=== PATIENT | female | born 2000 | race Caucasian/White ===

== ENCOUNTER 2018-04-04 21:13 | Emergency (ER) | payer BC | END 2018-04-04 22:22 | disposition home or self-care (01) | LOC: M ED 21:13 | DX: S63.654A Sprain of metacarpophalangeal joint of right ring finger, initial encounter (principal); X58.XXXA Exposure to other specified factors, initial encounter; Y92.9 Unspecified place or not applicable; Y93.9 Activity, unspecified; Y99.9 Unspecified external cause status; Z79.899 Other long term (current) drug therapy; Z91.030 Bee allergy status | CPT/HCPCS: 73140 ==

== ENCOUNTER → 2018-09-17 | Outpatient (REF) ==
[~2018-09-17] MED LIST: EPIP0.3I2 IM; IBUP-1022 PO; NEXP1IMP SC
== END ==
LOC: M LAB 16:45
PROVIDERS: ATTEND Nurse Practitioner Adult Health
DX: Z00.00 Encounter for general adult medical examination without abnormal findings (principal)

== ENCOUNTER 2019-02-11 16:49 | Emergency (ER) | payer BC, MEDICAID ==
[~2019-02-11] VITALS: Ht 157.5 cm; Wt 102.3 kg
--- NOTE | 2019-02-11 19:00 | REP ---
RIGHT HIP, TWO VIEWS: HISTORY: Hip pain. The patient is status-post ORIF of a proximal right femur fracture. Metal hardware is present. There is no acute fracture or dislocation. The joint space is normal in appearance. IMPRESSION:There is no acute fracture or dislocation. Electronically Signed by Villa Muse MD 02/11/2019 07:09 P
[2019-02-11 19:24] VITALS: BP 137/69
== END 2019-02-11 19:37 | disposition home or self-care (01) ==
LOC: M ED 16:49
DX: S76.011A Strain of muscle, fascia and tendon of right hip, initial encounter (principal); X50.1XXA Overexertion from prolonged static or awkward postures, initial encounter; Y92.89 Other specified places as the place of occurrence of the external cause; Y99.0 Civilian activity done for income or pay; Z91.030 Bee allergy status; Z79.3 Long term (current) use of hormonal contraceptives

== ENCOUNTER 2020-03-11 23:03 | Emergency (ER) | payer MEDICAID, OTHER ==
[~2020-03-11] VITALS: Ht 160 cm; Wt 110.5 kg
[2020-03-11] MEDS ORDERED: EX-L15CH3 PO (23:10)
[2020-03-11 23:44] LABS: BASO # 0.1 10^3/uL (0.0-0.2); BASO % 1.1 % (0.0-1.0); EOS # 0.2 10^3/uL (0.0-0.5); EOS % 2.9 % (0.0-3.0); HEMATOCRIT 41.6 % (36.0-47.0); HEMOGLOBIN 13.6 g/dl (12.0-15.5); LYMPH # 2.2 10^3/uL (1.5-5.0); LYMPH % 31.8 % (24.0-44.0); MEAN CORPUSCULAR HEMOGLOBIN 26.8 pg (27.0-33.0); MEAN CORPUSCULAR HGB CONC 32.7 g/dl (32.0-36.5); MEAN CORPUSCULAR VOLUME 82.1 fl (80.0-96.0); MONO # 0.5 10^3/uL (0.0-0.8); MONO % 6.6 % (0.0-5.0); NEUTROPHILS % 57.2 % (36.0-66.0); PLATELET COUNT, AUTOMATED 385 10^3/uL (150-450); RED BLOOD COUNT 5.07 10^6/uL (4.00-5.40)
[2020-03-11] MEDS ORDERED: ONDANSETRON 4MG/2ML VIAL IV ONE (23:45)
[2020-03-11] MEDS ORDERED: NS 1,000 ML IV ONE (23:45)
[2020-03-12 00:13] LABS: ALBUMIN 3.2 GM/DL (3.2-5.2); BILIRUBIN,DIRECT 0.1 MG/DL (0.0-0.2); BILIRUBIN,TOTAL 0.3 MG/DL (0.2-1.0); TOTAL PROTEIN 7.3 GM/DL (6.4-8.2)
[2020-03-12] MEDS ORDERED: DICYCLOMINE 10 MG CAP PO ONE (00:30)
[2020-03-12] MEDS ORDERED: KETOROLAC 30 MG/ML 1ML VIAL IV ONE (00:30)
[2020-03-12] MEDS ORDERED: DICY10CA13 PO (01:23)
[2020-03-12] MEDS ORDERED: ONDA4TAB6 PO (01:23)
[2020-03-12 01:34] VITALS: BP 121/75
== END 2020-03-12 01:47 | disposition home or self-care (01) ==
LOC: M ED 23:03
DX: R19.7 Diarrhea, unspecified (principal); R10.84 Generalized abdominal pain; E11.9 Type 2 diabetes mellitus without complications; Z91.030 Bee allergy status; Z79.3 Long term (current) use of hormonal contraceptives
CPT/HCPCS: 80047; 80076; 81001; 83690; 84702; 85025; 96361; 96374; 96375; 99284; J1885; J2405

== ENCOUNTER → 2020-03-12 | Outpatient (REF) | payer MEDICAID ==
[~2020-03-12] MED LIST changes: +DICY10CA13 PO; +EX-L15CH3 PO; +ONDA4TAB6 PO
== END ==
LOC: M LAB REF 14:14
PROVIDERS: ATTEND Physician Assistant
DX: R19.7 Diarrhea, unspecified (principal)

== ENCOUNTER → 2021-03-11 | Outpatient (CLI) | payer OTHER ==
[2021-03-11 16:35] LABS: BASO % 0.4 % (0.0-1.0); EOS # 0.4 10^3/uL (0.0-0.5); HEMATOCRIT 41.9 % (36.0-47.0); HEMOGLOBIN 13.1 g/dl (12.0-15.5); LYMPH # 1.9 10^3/uL (1.5-5.0); LYMPH % 26.6 % (24.0-44.0); MEAN CORPUSCULAR HEMOGLOBIN 26.8 pg (27.0-33.0); MEAN CORPUSCULAR HGB CONC 31.3 g/dl (32.0-36.5); MEAN CORPUSCULAR VOLUME 85.9 fl (80.0-96.0); MONO # 0.4 10^3/uL (0.0-0.8); MONO % 5.5 % (2.0-8.0); NEUTROPHILS # 4.3 10^3/uL (1.5-8.5); NEUTROPHILS % 61.1 % (36.0-66.0); PLATELET COUNT, AUTOMATED 357 10^3/uL (150-450); RED BLOOD COUNT 4.88 10^6/uL (4.00-5.40); WHITE BLOOD COUNT 7.1 10^3/uL (4.0-10.0)
[2021-03-11 17:19] LABS: ALBUMIN 3.3 GM/DL (3.2-5.2); ALT/SGPT 19 U/L (12-78); AMYLASE 40 U/L (25-115); BILIRUBIN,TOTAL 0.3 MG/DL (0.2-1.0); BLOOD UREA NITROGEN 9 MG/DL (7-18); CALCIUM LEVEL 9.2 MG/DL (8.5-10.1); CARBON DIOXIDE LEVEL 26 MEQ/L (21-32); CHLORIDE LEVEL 106 MEQ/L (98-107); CREATININE FOR GFR 0.58 MG/DL (0.55-1.30); GLOMERULAR FILTRATION RATE > 60.0 (>60); GLUCOSE, FASTING 85 MG/DL (70-100); LIPASE 82 U/L (73-393); SODIUM LEVEL 138 MEQ/L (136-145); TOTAL PROTEIN 6.9 GM/DL (6.4-8.2)
== END ==
LOC: M WUC 10:34
PROVIDERS: ATTEND Physician Assistant
DX: R10.84 Generalized abdominal pain (principal); R11.2 Nausea with vomiting, unspecified; R19.7 Diarrhea, unspecified

== ENCOUNTER 2021-03-18 20:58 | Emergency (ER) | payer OTHER ==
[~2021-03-18] VITALS: Ht 160 cm; Wt 113.3 kg
[2021-03-18] MEDS ORDERED: OMEP40CA4 PO (21:11)
[2021-03-18 21:46] LABS: BASO # 0.1 10^3/uL (0.0-0.2); BASO % 0.8 % (0.0-1.0); EOS # 0.6 10^3/uL (0.0-0.5); EOS % 6.6 % (0.0-3.0); HEMATOCRIT 40.4 % (36.0-47.0); HEMOGLOBIN 13.3 g/dl (12.0-15.5); LYMPH # 1.8 10^3/uL (1.5-5.0); LYMPH % 20.1 % (24.0-44.0); MEAN CORPUSCULAR HEMOGLOBIN 27.6 pg (27.0-33.0); MEAN CORPUSCULAR HGB CONC 32.9 g/dl (32.0-36.5); MEAN CORPUSCULAR VOLUME 83.8 fl (80.0-96.0); MONO # 0.3 10^3/uL (0.0-0.8); MONO % 3.8 % (2.0-8.0); NEUTROPHILS % 68.5 % (36.0-66.0); PLATELET COUNT, AUTOMATED 361 10^3/uL (150-450); RED BLOOD COUNT 4.82 10^6/uL (4.00-5.40); WHITE BLOOD COUNT 8.8 10^3/uL (4.0-10.0)
[2021-03-18 22:09] LABS: ALBUMIN 3.4 GM/DL (3.2-5.2); ALT/SGPT 21 U/L (12-78); BILIRUBIN,DIRECT < 0.1 MG/DL (0.0-0.2); BILIRUBIN,TOTAL 0.2 MG/DL (0.2-1.0); CK-MB VALUE MASS < 1.0 NG/ML (<3.6); CPK CREATINE PHOSPHOKINASE 70 U/L (26-192); LIPASE 96 U/L (73-393); MB/CK RELATIVE INDEX 1.43 (< OR =4); TOTAL PROTEIN 7.1 GM/DL (6.4-8.2); TROPONIN I < 0.02 NG/ML (< 0.10)
[2021-03-19] MEDS ORDERED: NS 1,000 ML IV ONE (00:20)
[2021-03-19] MEDS ORDERED: GI COCKTAIL 50ML BTL(HYOSCYAMINE/MAALOX/LIDOCAINE VISCOUS)(1:3:1) PO ONE (00:20)
[2021-03-19] MEDS ORDERED: CARA1TAB6 PO (03:34)
--- NOTE | 2021-03-19 03:44 | REPVR ---
PROCEDURE INFORMATION: Exam: XR Complete Acute Abdomen Series including Chest Exam date and time: 03/19/2021 (1:33am) Age: 20 years old Clinical indication: Abdominal pain TECHNIQUE: Imaging protocol: XR complete acute abdomen series, including 2 or more views of the abdomen and a single view chest COMPARISON: Right hip plain films of 02/11/19 FINDINGS: Lungs: Normal. No consolidation. Pleural spaces: Normal. No pleural effusions. No pneumothorax. Heart/Mediastinum: Normal. No cardiomegaly. Gastrointestinal tract: Unremarkable. No bowel dilatation. Intraperitoneal space: Normal. No free air. Bones/joints: No acute fracture. Mild dextroscoliosis of the lumbar spine. Soft tissues: Prominent breast shadows. Navel piercing. IMPRESSION: No acute findings. Clear lung ruiz. The bowel gas pattern is nonspecific and non-obstructed. Electronically signed by: Sofia Ball On 03/19/2021 03:43:30 AM
[2021-03-19 03:50] VITALS: BP 132/77
--- NOTE | 2021-03-19 05:41 | ECGEPIP ---
[facility] - ED Test Date: 2021-03-19 Pat Name: LETA LATIF Department: Room: - Gender: Female Sustainability Director: KIA : 2000 Requested By: JUDE Goode PA-C Order Number: [id number] Reading MD: Piyush Delgado Measurements Intervals [place] Rate: 73 P: 37 TN: 122 QRS: 31 QRSD: 84 T: 19 QT: 382 QTc: 420 Interpretive Statements Normal sinus rhythm NONSPECIFIC T WAVE ABNORMALITY(S) NO PRIORS FOR COMPARISON Electronically Signed on 03-19-2021 5:41:02 EDT by Piyush Delgado
== END 2021-03-19 03:56 | disposition home or self-care (01) ==
LOC: M ED 20:58
DX: K29.70 Gastritis, unspecified, without bleeding (principal); K21.9 Gastro-esophageal reflux disease without esophagitis; R10.13 Epigastric pain; E66.9 Obesity, unspecified; Z79.3 Long term (current) use of hormonal contraceptives

== ENCOUNTER → 2021-05-17 | Outpatient (CLI) | payer OTHER ==
[~2021-05-17] MED LIST changes: +CARA1TAB6 PO; +OMEP40CA4 PO
--- NOTE | 2021-05-17 09:19 | REP ---
INDICATION: EPIGASTRIC PAIN COMPARISON: None. TECHNIQUE: Real time lo scale ultrasound examination using curved array transducer. FINDINGS: Liver is normal in contour, size, and echogenicity without focal hepatic lesions identified. Pancreas is incompletely evaluated due to interposed bowel gas. The gallbladder is normal and without gallstones, wall thickening, or pericholecystic fluid. No biliary ductal dilatation is appreciated and the common bile duct measures 3.0 mm diameter. Right kidney is normal in reniform shape without hydronephrosis and measures 10.4 x 6.0 x 4.9 cm. No ascites in the visualized right upper quadrant. IMPRESSION: Normal limited right upper quadrant ultrasound <Electronically signed by Everton Carmona > 05/17/21 0915
== END ==
LOC: M RAD 08:34
PROVIDERS: ATTEND Nurse Practitioner Adult Health
DX: R10.13 Epigastric pain (principal)

== ENCOUNTER → 2021-08-20 | Outpatient (CLI) | payer OTHER ==
--- NOTE | 2021-08-20 10:40 | REP ---
INDICATION: EPIGASTRIC PAIN. COMPARISON: None. TECHNIQUE/RADIOTRACER AND DOSE: After the intravenous administration of 6.6 mCi of technetium 99 M Choletec hepatobiliary imaging was performed with gallbladder ejection fraction calculation. FINDINGS: There is symmetric distribution of the radiotracer throughout the hepatocytes. The gallbladder is promptly visualized at 15 minutes. There is no delay in the biliary to bowel transit time. The gallbladder ejection fraction calculation is 93%. IMPRESSION: Normal study <Electronically signed by August Arce > 08/20/21 1037
== END ==
LOC: M RAD 08:02
PROVIDERS: ATTEND Nurse Practitioner Adult Health
DX: R10.13 Epigastric pain (principal)
CPT/HCPCS: 78227; A9537

== ENCOUNTER → 2021-10-05 | Outpatient (CLI) | payer OTHER ==
[2021-10-05 13:23] LABS: BASO % 0.3 % (0.0-1.0); EOS # 0.2 10^3/uL (0.0-0.5); EOS % 2.3 % (0.0-3.0); HEMATOCRIT 39.1 % (36.0-47.0); HEMOGLOBIN 12.6 g/dl (12.0-15.5); LYMPH # 2.2 10^3/uL (1.5-5.0); LYMPH % 28.3 % (24.0-44.0); MEAN CORPUSCULAR HEMOGLOBIN 27.5 pg (27.0-33.0); MEAN CORPUSCULAR HGB CONC 32.2 g/dl (32.0-36.5); MEAN CORPUSCULAR VOLUME 85.2 fl (80.0-96.0); MONO # 0.3 10^3/uL (0.0-0.8); NEUTROPHILS # 5.1 10^3/uL (1.5-8.5); NEUTROPHILS % 64.8 % (36.0-66.0); PLATELET COUNT, AUTOMATED 297 10^3/uL (150-450); RED BLOOD COUNT 4.59 10^6/uL (4.00-5.40); WHITE BLOOD COUNT 7.8 10^3/uL (4.0-10.0)
[2021-10-05 13:53] LABS: ALBUMIN 3.4 GM/DL (3.2-5.2); ALT/SGPT 19 U/L (12-78); AMYLASE 38 U/L (25-115); BILIRUBIN,TOTAL 0.3 MG/DL (0.2-1.0); BLOOD UREA NITROGEN 10 MG/DL (7-18); CALCIUM LEVEL 9.2 MG/DL (8.5-10.1); CARBON DIOXIDE LEVEL 27 MEQ/L (21-32); CHLORIDE LEVEL 109 MEQ/L (98-107); CREATININE FOR GFR 0.63 MG/DL (0.55-1.30); GLOMERULAR FILTRATION RATE > 60.0 (>60); GLUCOSE, FASTING 103 MG/DL (70-100); LIPASE 69 U/L (73-393); POTASSIUM SERUM 4.4 MEQ/L (3.5-5.1); SODIUM LEVEL 142 MEQ/L (136-145); TOTAL PROTEIN 6.7 GM/DL (6.4-8.2)
== END ==
LOC: M PLALAB 09:32
PROVIDERS: ATTEND Physician Assistant Medical
DX: R10.13 Epigastric pain (principal)

== ENCOUNTER → 2021-10-19 | Outpatient (CLI) | payer OTHER ==
[~2021-10-19] MED LIST changes: +E-Z-GAS II EFFERVESCENT PACKET (SODIUM BICARB./CITRIC ACID/SIMETHICONE) As Ordered ONE; +E-Z-HD 98% w/w 340GM SUSP BTL As Ordered ONE; +E-Z-PAQUE 96% w/w SUSP 176GM BTL As Ordered ONE
== END ==
LOC: M RAD 07:45
PROVIDERS: ATTEND Physician Assistant Medical
DX: R11.0 Nausea (principal)

== ENCOUNTER → 2021-11-11 | Outpatient (CLI) | payer OTHER ==
[~2021-11-11] MED LIST changes: -E-Z-GAS II EFFERVESCENT PACKET (SODIUM BICARB./CITRIC ACID/SIMETHICONE) As Ordered ONE; -E-Z-HD 98% w/w 340GM SUSP BTL As Ordered ONE; -E-Z-PAQUE 96% w/w SUSP 176GM BTL As Ordered ONE; +PANT40TA29 PO
== END ==
LOC: M LABSMTC 09:09
PROVIDERS: ATTEND Anesthesiology
DX: Z01.812 Encounter for preprocedural laboratory examination (principal); Z20.822 Contact with and (suspected) exposure to COVID-19

== ENCOUNTER 2021-11-16 11:47 | Day surgery (SDC) | payer OTHER ==
[~2021-11-16] VITALS: Ht 160 cm; Wt 112.5 kg
[~2021-11-16 11:47] MED LIST changes: +NS 1,000 ML IV ONE
[2021-11-16] MEDS ORDERED: propofoL 200 MG/20 ML VIAL As Ordered ONE (13:26)
[2021-11-16] MEDS ORDERED: LIDOCAINE 2% 100MG/5ML SDV (FOR ANES.) As Ordered ONE (13:26)
[2021-11-16] MEDS ORDERED: fentaNYL 100 MCG/2 ML INJECTION As Ordered ONE (13:28)
[2021-11-16 14:00] VITALS: BP 124/72
== END 2021-11-16 14:09 | disposition home or self-care (01) ==
LOC: M OPP 11:47
PROVIDERS: ATTEND Internal Medicine Gastroenterology
DX: K29.70 Gastritis, unspecified, without bleeding (principal); R10.13 Epigastric pain; R11.0 Nausea; Z79.899 Other long term (current) drug therapy; Z91.030 Bee allergy status
CPT/HCPCS: 43239; 88305; J3010

== ENCOUNTER 2022-12-02 16:26 | Emergency (ER) | payer OTHER ==
[~2022-12-02] VITALS: Ht 157.5 cm; Wt 101.3 kg
[~2022-12-02 16:26] MED LIST changes: +ETON68IM SC; -NEXP1IMP SC; -NS 1,000 ML IV ONE
[2022-12-02 17:17] LABS: BASO # 0.1 10^3/uL (0.0-0.2); BASO % 0.6 % (0.0-1.0); HEMATOCRIT 45.2 % (36.0-47.0); HEMOGLOBIN 14.9 g/dl (12.0-15.5); LYMPH # 0.9 10^3/uL (1.5-5.0); MEAN CORPUSCULAR HEMOGLOBIN 28.3 pg (27.0-33.0); MEAN CORPUSCULAR VOLUME 85.9 fl (80.0-96.0); MONO # 0.2 10^3/uL (0.0-0.8); MONO % 1.2 % (2.0-8.0); NEUTROPHILS # 12.9 10^3/uL (1.5-8.5); NEUTROPHILS % 91.8 % (36.0-66.0); PLATELET COUNT, AUTOMATED 393 10^3/uL (150-450); RED BLOOD COUNT 5.26 10^6/uL (4.00-5.40); WHITE BLOOD COUNT 14.1 10^3/uL (4.0-10.0)
[2022-12-02 17:39] LABS: LIPASE 30 U/L (12-53)
[2022-12-02 17:41] LABS: ALBUMIN 3.9 G/DL (3.2-5.2); ALKALINE PHOSPHATASE 104 U/L (46-116); ALT/SGPT 19 U/L (7.0-40); AST/SGOT 13 U/L (<34); BILIRUBIN,DIRECT 0.2 MG/DL (<0.4); BILIRUBIN,TOTAL 0.5 MG/DL (0.3-1.2); BLOOD UREA NITROGEN 10 MG/DL (9-23); CALCIUM LEVEL 9.4 MG/DL (8.5-10.1); CARBON DIOXIDE LEVEL 25 MMOL/L (20-31); CHLORIDE LEVEL 105 MMOL/L (98-107); GLOMERULAR FILTRATION RATE > 60.0 (>60); GLUCOSE, FASTING 121 MG/DL (60-100); POTASSIUM SERUM 3.9 MMOL/L (3.5-5.1); SODIUM LEVEL 140 MMOL/L (136-145); TOTAL PROTEIN 7.4 G/DL (5.7-8.2)
[2022-12-02 17:54] LABS: HCG, SERUM QUALITATIVE NEGATIVE (NEGATIVE)
[2022-12-02] MEDS ORDERED: ONDANSETRON 4MG 2ML VIAL IV ONE (18:05)
[2022-12-02] MEDS ORDERED: NS 1,000 ML IV ONE (18:05)
[2022-12-02] MEDS ORDERED: KETOROLAC 30 MG/ML 1ML VIAL IV ONE (18:30)
[2022-12-02] MEDS ORDERED: ISOVUE-370 76% 100ML VIAL As Ordered ONE (18:35)
[2022-12-02] MEDS ORDERED: GI COCKTAIL 50ML BTL(HYOSCYAMINE/MAALOX/LIDOCAINE VISCOUS)(1:3:1) PO ONE (19:50)
[2022-12-02] MEDS ORDERED: PROMETHAZINE 25 MG TAB PO ONE (20:25)
[2022-12-02] MEDS ORDERED: PROM25TA12 PO (20:42)
[2022-12-02] MEDS ORDERED: ONDA4TAB6 PO (20:43)
[2022-12-02 21:07] VITALS: BP 139/66
== END 2022-12-02 21:17 | disposition home or self-care (01) ==
LOC: M ED 16:26
DX: R10.9 Unspecified abdominal pain (principal); R11.2 Nausea with vomiting, unspecified; K21.9 Gastro-esophageal reflux disease without esophagitis; Z79.899 Other long term (current) drug therapy; Z91.030 Bee allergy status
CPT/HCPCS: 74177; 80048; 80076; 81001; 83690; 84703; 85025; 96361; 96374; 96375; 99284; J1885; J2405

== ENCOUNTER 2022-12-07 11:03 | Emergency (ER) | payer OTHER ==
[~2022-12-07] VITALS: Ht 157.5 cm; Wt 101.0 kg
[~2022-12-07 11:03] MED LIST changes: +PROM25TA12 PO
[2022-12-07 12:23] LABS: BASO % 0.5 % (0.0-1.0); EOS % 0.4 % (0.0-3.0); HEMATOCRIT 40.8 % (36.0-47.0); LYMPH % 17.6 % (24.0-44.0); MEAN CORPUSCULAR HEMOGLOBIN 28.7 pg (27.0-33.0); MEAN CORPUSCULAR HGB CONC 34.3 g/dl (32.0-36.5); MEAN CORPUSCULAR VOLUME 83.8 fl (80.0-96.0); MONO % 5.3 % (2.0-8.0); NEUTROPHILS % 75.7 % (36.0-66.0); PLATELET COUNT, AUTOMATED 326 10^3/uL (150-450); RED BLOOD COUNT 4.87 10^6/uL (4.00-5.40); WHITE BLOOD COUNT 10.5 10^3/uL (4.0-10.0)
[2022-12-07 12:24] LABS: BASO # 0.1 10^3/uL (0.0-0.2); LYMPH # 1.9 10^3/uL (1.5-5.0); MONO # 0.6 10^3/uL (0.0-0.8)
[2022-12-07 12:48] LABS: LIPASE 24 U/L (12-53)
[2022-12-07 12:50] LABS: ALBUMIN 3.6 G/DL (3.2-5.2); ALKALINE PHOSPHATASE 89 U/L (46-116); ALT/SGPT 13 U/L (7.0-40); AST/SGOT 11 U/L (<34); BILIRUBIN,DIRECT 0.3 MG/DL (<0.4); BILIRUBIN,TOTAL 0.6 MG/DL (0.3-1.2); BLOOD UREA NITROGEN 10 MG/DL (9-23); CALCIUM LEVEL 9.2 MG/DL (8.5-10.1); CARBON DIOXIDE LEVEL 26 MMOL/L (20-31); CHLORIDE LEVEL 103 MMOL/L (98-107); CREATININE FOR GFR 0.58 MG/DL (0.55-1.30); GLOMERULAR FILTRATION RATE > 60.0 (>60); GLUCOSE, FASTING 87 MG/DL (60-100); POTASSIUM SERUM 3.6 MMOL/L (3.5-5.1); SODIUM LEVEL 139 MMOL/L (136-145); TOTAL PROTEIN 6.9 G/DL (5.7-8.2)
[2022-12-07] MEDS ORDERED: KETOROLAC 30 MG/ML 1ML VIAL IV ONE (13:20)
[2022-12-07] MEDS ORDERED: NS 1,000 ML IV ONE (13:20)
[2022-12-07] MEDS ORDERED: FAMOTIDINE 20MG/2ML VIAL IVP ONE (13:20)
[2022-12-07] MEDS ORDERED: METOCLOPRAMIDE INJ 10MG/2ML VIAL IV ONE (13:20)
[2022-12-07 13:24] LABS: HCG, SERUM QUALITATIVE NEGATIVE (NEGATIVE)
[2022-12-07] MEDS ORDERED: ISOVUE-370 76% 100ML VIAL As Ordered ONE (13:57)
[2022-12-07 14:33] LABS: RSV AMPLIFICATION NEGATIVE (NEGATIVE)
[2022-12-07 15:23] LABS: MONO SCRN NEGATIVE (NEGATIVE)
[2022-12-07] MEDS ORDERED: AMOX500C PO (15:23)
[2022-12-07] MEDS ORDERED: ONDA4TAB6 PO (15:24)
[2022-12-07] MEDS ORDERED: AMOXICILLIN 500 MG CAP PO ONE (15:25)
[2022-12-07 15:30] VITALS: BP 139/85
== END 2022-12-07 16:01 | disposition home or self-care (01) ==
LOC: M ED 11:03
DX: J02.0 Streptococcal pharyngitis (principal); K21.9 Gastro-esophageal reflux disease without esophagitis
CPT/HCPCS: 74177; 80048; 80076; 83605; 83690; 84703; 85025; 86308; 87631; 87880; 96374; 96375; 99284; J1885; J2765

== ENCOUNTER 2022-12-16 13:56 | Emergency (ER) | payer OTHER ==
[~2022-12-16] VITALS: Ht 157.5 cm; Wt 97.4 kg
[~2022-12-16 13:56] MED LIST changes: +AMOX500C PO
[2022-12-16 15:53] LABS: BASO # 0.1 10^3/uL (0.0-0.2); BASO % 0.5 % (0.0-1.0); EOS % 0.1 % (0.0-3.0); HEMATOCRIT 44.1 % (36.0-47.0); HEMOGLOBIN 14.4 g/dl (12.0-15.5); LYMPH # 1.4 10^3/uL (1.5-5.0); LYMPH % 14.2 % (24.0-44.0); MEAN CORPUSCULAR HEMOGLOBIN 28.1 pg (27.0-33.0); MEAN CORPUSCULAR HGB CONC 32.7 g/dl (32.0-36.5); MONO # 0.5 10^3/uL (0.0-0.8); MONO % 4.6 % (2.0-8.0); NEUTROPHILS # 8.1 10^3/uL (1.5-8.5); NEUTROPHILS % 80.3 % (36.0-66.0); PLATELET COUNT, AUTOMATED 410 10^3/uL (150-450); RED BLOOD COUNT 5.13 10^6/uL (4.00-5.40); WHITE BLOOD COUNT 10.1 10^3/uL (4.0-10.0)
[2022-12-16 17:32] LABS: BLOOD UREA NITROGEN < 5 MG/DL (9-23); CHLORIDE LEVEL 103 MMOL/L (98-107); POTASSIUM SERUM 3.9 MMOL/L (3.5-5.1); SODIUM LEVEL 140 MMOL/L (136-145)
[2022-12-16 17:49] LABS: ALBUMIN 3.7 G/DL (3.2-5.2); ALKALINE PHOSPHATASE 84 U/L (46-116); ALT/SGPT 16 U/L (7.0-40); AST/SGOT 11 U/L (<34); BILIRUBIN,DIRECT 0.1 MG/DL (<0.4); BILIRUBIN,TOTAL 0.4 MG/DL (0.3-1.2); CALCIUM LEVEL 9.6 MG/DL (8.5-10.1); CARBON DIOXIDE LEVEL 27 MMOL/L (20-31); CREATININE FOR GFR 0.55 MG/DL (0.55-1.30); GLOMERULAR FILTRATION RATE > 60.0 (>60); GLUCOSE, FASTING 105 MG/DL (60-100); LIPASE 26 U/L (12-53); TOTAL PROTEIN 6.8 G/DL (5.7-8.2)
[2022-12-16 21:57] VITALS: BP 131/84
== END 2022-12-16 22:10 | disposition home or self-care (01) ==
LOC: M ED 13:56
DX: R10.10 Upper abdominal pain, unspecified (principal); R11.10 Vomiting, unspecified; K21.9 Gastro-esophageal reflux disease without esophagitis

== ENCOUNTER 2023-03-09 09:13 | Observation (INO) | payer OTHER ==
[~2023-03-09] VITALS: Ht 157.5 cm; Wt 92.5 kg
[2023-03-09 10:07] LABS: HEMATOCRIT 42.9 % (36.0-47.0); HEMOGLOBIN 14.6 g/dl (12.0-15.5); MEAN CORPUSCULAR HEMOGLOBIN 28.7 pg (27.0-33.0); MEAN CORPUSCULAR VOLUME 84.4 fl (80.0-96.0); PLATELET COUNT, AUTOMATED 458 10^3/uL (150-450); RED BLOOD COUNT 5.08 10^6/uL (4.00-5.40); WHITE BLOOD COUNT 17.2 10^3/uL (4.0-10.0)
[2023-03-09 10:37] LABS: LIPASE 30 U/L (12-53)
[2023-03-09 10:39] LABS: ALBUMIN 4.1 G/DL (3.2-5.2); ALKALINE PHOSPHATASE 80 U/L (46-116); ALT/SGPT 15 U/L (7.0-40); AST/SGOT < 8 U/L (<34); BILIRUBIN,DIRECT 0.2 MG/DL (<0.4); BILIRUBIN,TOTAL 0.5 MG/DL (0.3-1.2); BLOOD UREA NITROGEN 7 MG/DL (9-23); CALCIUM LEVEL 9.2 MG/DL (8.5-10.1); CARBON DIOXIDE LEVEL 20 MMOL/L (20-31); CHLORIDE LEVEL 105 MMOL/L (98-107); GLOMERULAR FILTRATION RATE > 60.0 (>60); GLUCOSE, FASTING 152 MG/DL (60-100); POTASSIUM SERUM 3.4 MMOL/L (3.5-5.1); SODIUM LEVEL 139 MMOL/L (136-145); TOTAL PROTEIN 7.3 G/DL (5.7-8.2)
[2023-03-09 11:00] LABS: ATYPICAL LYMPH 2 % (0-5); LYMPHOCYTES 7 % (16-44); MONOCYTES 1 % (0-5); NEUTROPHILS 88 % (28-66)
[2023-03-09 11:01] LABS: PLATELET ESTIMATE INCREASED (NORMAL)
[2023-03-09 11:35] LABS: HCG, SERUM QUALITATIVE POSITIVE (NEGATIVE)
[2023-03-09] MEDS ORDERED: SUCRALFATE 1 GM TAB PO ONE (12:10)
[2023-03-09] MEDS ORDERED: METOCLOPRAMIDE INJ 10MG/2ML VIAL IV ONE (12:10)
[2023-03-09] MEDS ORDERED: HYOSCYAMINE SULFATE 0.125 MG SUBL TABLET PO ONE (12:10)
[2023-03-09] MEDS ORDERED: NS 1,000 ML IV ONE (12:10)
[2023-03-09 12:37] LABS: HCG, SERUM QUANTITATIVE 14404.5 MIU/ML (<4.2)
[2023-03-09] MEDS ORDERED: ONDANSETRON 4MG 2ML VIAL IV ONE ×2 (12:55→15:10)
[2023-03-09] MEDS ORDERED: PROMETHAZINE 25MG/ML 1ML VIAL IV ONE (14:05)
[2023-03-09] MEDS ORDERED: LR 1,000 ML IV ONE (15:10)
[2023-03-09 19:18] LABS: RSV AMPLIFICATION NEGATIVE (NEGATIVE)
[2023-03-09] MEDS ORDERED: HOME MED LIST COMPLETE! XX SCH (19:45)
[2023-03-09] MEDS ORDERED: PRENCHW PO (19:45)
[2023-03-09] MEDS ORDERED: ACET-897 PO (19:45)
[2023-03-09] MEDS: LR 1,000 ML IV SCH (21:48)
[2023-03-09] MEDS: METOCLOPRAMIDE INJ 10MG/2ML VIAL IV SCH (21:53)
[2023-03-09 22:00] VITALS: BP 138/74; TEMP 99.1; O2SAT 98
[2023-03-09] MEDS: ONDANSETRON 4MG 2ML VIAL IV SCH (23:28)
[2023-03-10] MEDS: PROMETHAZINE 25MG/ML 1ML VIAL IV SCH ×5 (00:52→23:47)
[2023-03-10] MEDS: METOCLOPRAMIDE INJ 10MG/2ML VIAL IV SCH ×4 (02:57→20:01)
[2023-03-10] MEDS: PANTOPRAZOLE 40MG VIAL IV SCH (03:57)
[2023-03-10] MEDS: ONDANSETRON 4MG 2ML VIAL IV SCH ×4 (05:13→22:43)
[2023-03-10] MEDS: LR 1,000 ML IV SCH ×3 (06:28→19:50)
[2023-03-10 08:00] VITALS: BP 126/61; TEMP 98; O2SAT 98
[2023-03-10] MEDS ORDERED: PANTOPRAZOLE 40MG VIAL IV SCH (09:00)
[2023-03-10 16:00] VITALS: BP 130/67; TEMP 98.8; O2SAT 97
[2023-03-10 19:34] LABS: LIPASE 27 U/L (12-53)
[2023-03-10 19:35] LABS: AMYLASE 55 U/L (30-118)
[2023-03-10 19:38] LABS: FREE T4 1.06 NG/DL (0.89-1.76); THYROID STIMULATING HORMONE 0.506 uIU/ML (0.55-4.78)
[2023-03-10 19:44] LABS: ALKALINE PHOSPHATASE 57 U/L (46-116); ALT/SGPT 11 U/L (7.0-40); AST/SGOT < 8 U/L (<34); BILIRUBIN,TOTAL 0.4 MG/DL (0.3-1.2); BLOOD UREA NITROGEN < 5 MG/DL (9-23); CALCIUM LEVEL 8.1 MG/DL (8.5-10.1); CARBON DIOXIDE LEVEL 25 MMOL/L (20-31); CHLORIDE LEVEL 106 MMOL/L (98-107); CREATININE FOR GFR 0.44 MG/DL (0.55-1.30); GLOMERULAR FILTRATION RATE > 60.0 (>60); GLUCOSE, FASTING 86 MG/DL (60-100); POTASSIUM SERUM 2.9 MMOL/L (3.5-5.1); SODIUM LEVEL 137 MMOL/L (136-145); TOTAL PROTEIN 5.5 G/DL (5.7-8.2)
[2023-03-10 20:00] VITALS: BP 110/56; TEMP 97.8; O2SAT 97
[2023-03-10] MEDS ORDERED: MULTIVITAMIN -ADULT INJECTION 10 ML, THIAMINE INJection 100 MG, FOLIC ACID 1 MG in NS 1... IV ONE (20:00)
[2023-03-10] MEDS: diphenhydrAMINE 50MG/ML VIAL IV SCH (20:34)
[2023-03-10] MEDS: KCL 10MEQ/100ML SWI (KRUN) 10 MEQ in IV 1 EA IV SCH ×4 (20:34→23:48)
[2023-03-11] VITALS: BP 121/61; TEMP 99.3; O2SAT 97
[2023-03-11] MEDS: METOCLOPRAMIDE INJ 10MG/2ML VIAL IV SCH ×4 (02:03→19:52)
[2023-03-11] MEDS: LR 1,000 ML IV SCH ×3 (03:50→18:11)
[2023-03-11] MEDS: ONDANSETRON 4MG 2ML VIAL IV SCH ×4 (03:56→22:00)
[2023-03-11 04:00] VITALS: BP 109/59; TEMP 98.3; O2SAT 97
[2023-03-11] MEDS: PROMETHAZINE 25MG/ML 1ML VIAL IV SCH ×3 (05:59→18:11)
[2023-03-11 07:10] LABS: MEAN CORPUSCULAR HEMOGLOBIN 28.6 pg (27.0-33.0); MEAN CORPUSCULAR HGB CONC 33.8 g/dl (32.0-36.5); MEAN CORPUSCULAR VOLUME 84.6 fl (80.0-96.0); PLATELET COUNT, AUTOMATED 250 10^3/uL (150-450); RED BLOOD COUNT 4.02 10^6/uL (4.00-5.40); WHITE BLOOD COUNT 7.5 10^3/uL (4.0-10.0)
[2023-03-11 07:13] LABS: HEMOGLOBIN 11.5 g/dl (12.0-15.5)
[2023-03-11 07:16] LABS: BLOOD UREA NITROGEN < 5 MG/DL (9-23); CALCIUM LEVEL 7.9 MG/DL (8.5-10.1); CARBON DIOXIDE LEVEL 23 MMOL/L (20-31); CHLORIDE LEVEL 106 MMOL/L (98-107); CREATININE FOR GFR 0.48 MG/DL (0.55-1.30); GLOMERULAR FILTRATION RATE > 60.0 (>60); GLUCOSE, FASTING 80 MG/DL (60-100); POTASSIUM SERUM 3.3 MMOL/L (3.5-5.1); SODIUM LEVEL 138 MMOL/L (136-145)
[2023-03-11 08:00] VITALS: BP 100/50; TEMP 98.2; O2SAT 98
[2023-03-11] MEDS: PANTOPRAZOLE 40MG VIAL IV SCH (08:31)
[2023-03-11] MEDS: CALCIUM CARBONATE 500 MG CHEW U/D PO PRN ×2 (11:03→20:02)
[2023-03-11 12:00] VITALS: BP 97/65; TEMP 97.3; O2SAT 98
[2023-03-11 16:00] VITALS: BP 121/70; TEMP 99; O2SAT 97
[2023-03-11 20:00] VITALS: BP 140/86; TEMP 97.8; O2SAT 99
[2023-03-11] MEDS: diphenhydrAMINE 50MG/ML VIAL IV SCH (21:08)
[2023-03-12] VITALS: BP 125/57; TEMP 98.2; O2SAT 97
[2023-03-12] MEDS: PROMETHAZINE 25MG/ML 1ML VIAL IV SCH ×4 (00:06→18:05)
[2023-03-12] MEDS: METOCLOPRAMIDE INJ 10MG/2ML VIAL IV SCH ×4 (02:19→20:15)
[2023-03-12] MEDS: LR 1,000 ML IV SCH ×3 (03:33→20:15)
[2023-03-12 04:00] VITALS: BP 124/61; TEMP 97.9; O2SAT 98
[2023-03-12] MEDS: ONDANSETRON 4MG 2ML VIAL IV SCH ×4 (04:24→22:08)
[2023-03-12 08:00] VITALS: BP 133/83; TEMP 98.4; O2SAT 99
[2023-03-12] MEDS: PANTOPRAZOLE 40MG VIAL IV SCH (08:07)
[2023-03-12 11:02] LABS: HEMATOCRIT 39.4 % (36.0-47.0); HEMOGLOBIN 13.4 g/dl (12.0-15.5); MEAN CORPUSCULAR HEMOGLOBIN 28.6 pg (27.0-33.0); PLATELET COUNT, AUTOMATED 278 10^3/uL (150-450); RED BLOOD COUNT 4.69 10^6/uL (4.00-5.40); WHITE BLOOD COUNT 9.7 10^3/uL (4.0-10.0)
[2023-03-12 11:28] LABS: ALBUMIN 3.4 G/DL (3.2-5.2); ALKALINE PHOSPHATASE 69 U/L (46-116); ALT/SGPT 12 U/L (7.0-40); AST/SGOT 8 U/L (<34); BILIRUBIN,TOTAL 0.7 MG/DL (0.3-1.2); BLOOD UREA NITROGEN < 5 MG/DL (9-23); CALCIUM LEVEL 8.9 MG/DL (8.5-10.1); CARBON DIOXIDE LEVEL 22 MMOL/L (20-31); CHLORIDE LEVEL 105 MMOL/L (98-107); CREATININE FOR GFR 0.48 MG/DL (0.55-1.30); GLOMERULAR FILTRATION RATE > 60.0 (>60); GLUCOSE, FASTING 75 MG/DL (60-100); POTASSIUM SERUM 3.3 MMOL/L (3.5-5.1); SODIUM LEVEL 138 MMOL/L (136-145); TOTAL PROTEIN 6.3 G/DL (5.7-8.2)
[2023-03-12 12:00] VITALS: BP 117/66; TEMP 99.6; O2SAT 97
[2023-03-12 16:00] VITALS: BP 131/71; TEMP 98.9; O2SAT 97
[2023-03-12 20:00] VITALS: BP 131/66; TEMP 98.1; O2SAT 98
[2023-03-12] MEDS: diphenhydrAMINE 50MG/ML VIAL IV SCH (21:15)
[2023-03-13] VITALS: BP 114/58; TEMP 97.2; O2SAT 97
[2023-03-13] MEDS: PROMETHAZINE 25MG/ML 1ML VIAL IV SCH ×2 (00:07→05:54)
[2023-03-13] MEDS: METOCLOPRAMIDE INJ 10MG/2ML VIAL IV SCH ×2 (02:02→07:58)
[2023-03-13] MEDS: LR 1,000 ML IV SCH ×2 (03:47→11:56)
[2023-03-13 04:00] VITALS: BP 122/69; TEMP 97.9; O2SAT 96
[2023-03-13] MEDS: ONDANSETRON 4MG 2ML VIAL IV SCH ×2 (04:16→09:12)
[2023-03-13] MEDS: PANTOPRAZOLE 40MG VIAL IV SCH (07:58)
[2023-03-13 09:14] VITALS: BP 122/73; TEMP 97.6; O2SAT 98
[2023-03-13] MEDS ORDERED: PROMETHAZINE 25MG SUPP PR PRN (12:35)
[2023-03-13] MEDS ORDERED: ONDANSETRON 4MG TAB PO PRN (13:40)
[2023-03-13 15:00] VITALS: BP 126/75; TEMP 97.2; O2SAT 99
[2023-03-13] MEDS ORDERED: ONDA-83 PO (15:52)
[2023-03-13] MEDS ORDERED: Promethazine Suppository PR (15:52)
[2023-03-13] MEDS ORDERED: METO10TA2 PO (15:52)
[2023-03-13] MEDS ORDERED: OMEP-173 PO (15:52)
[2023-03-13] MEDS ORDERED: PANT40TA29 PO (15:52)
[2023-03-13] MEDS ORDERED: PROM25TA12 PO (15:54)
[2023-03-13] MEDS ORDERED: PROM25TA12 PR (16:01)
[2023-03-13] MEDS ORDERED: METOCLOPRAMIDE 10MG TAB PO SCH (21:00)
[2023-03-14] MEDS ORDERED: PANTOPRAZOLE 40MG TAB (PROTONIX) PO SCH (09:00)
[2023-03-14] MEDS ORDERED: OMEPRAZOLE 20MG CAP PO SCH (09:00)
== END 2023-03-13 17:51 | disposition home or self-care (01) ==
LOC: M ED 09:13 → M ED INP 19:47 → M PED 21:38
PROVIDERS: ADMIT Obstetrics & Gynecology; ATTEND Obstetrics & Gynecology
DX: O21.0 Mild hyperemesis gravidarum (principal); Z3A.01 Less than 8 weeks gestation of pregnancy; Z91.030 Bee allergy status
CPT/HCPCS: 36415; 76705; 76801; 76817; 80048; 80053; 80076; 81001; 82150; 83690; 84439; 84443; 84702; 84703; 85025; 85027; 87631; 93976; 96361; 96374; 96375; 96376; 99284; C9113; J1200; J2405; J2550; J2765; J3411

== ENCOUNTER → 2023-04-27 | Outpatient (CLI) | payer OTHER ==
[~2023-04-27] MED LIST changes: +ACET-897 PO; +DICY-61 PO; -DICY10CA13 PO; +METO10TA2 PO; +OMEP-173 PO; +ONDA-83 PO; +PRENCHW PO; +PROM25TA12 PR; +Promethazine Suppository PR
[2023-04-27 11:04] LABS: HEMATOCRIT 36.1 % (36.0-47.0); HEMOGLOBIN 11.8 g/dl (12.0-15.5); MEAN CORPUSCULAR HEMOGLOBIN 28.8 pg (27.0-33.0); MEAN CORPUSCULAR HGB CONC 32.7 g/dl (32.0-36.5); PLATELET COUNT, AUTOMATED 269 10^3/uL (150-450); WHITE BLOOD COUNT 7.1 10^3/uL (4.0-10.0)
[2023-04-27 11:59] LABS: HIV 1&2 SCREEN NEGATIVE (NEGATIVE)
[2023-04-27 12:06] LABS: HEPATITIS C VIRUS ABY INDEX 0.11 INDEX (<0.8)
[2023-04-27 12:33] LABS: GC DNA AMPLIFICATION NEGATIVE (NEGATIVE)
== END ==
LOC: M PLALAB 08:42
PROVIDERS: ATTEND Advanced Practice Midwife
DX: Z34.01 Encounter for supervision of normal first pregnancy, first trimester (principal)

== ENCOUNTER → 2023-05-23 | Outpatient (CLI) | payer OTHER | LOC: M PLALAB 11:12 | PROVIDERS: ATTEND Obstetrics & Gynecology | DX: Z34.82 Encounter for supervision of other normal pregnancy, second trimester (principal) ==

== ENCOUNTER → 2023-05-23 | Outpatient (REF) | payer OTHER | LOC: M PLALAB 11:53 | PROVIDERS: ATTEND Obstetrics & Gynecology | DX: Z34.82 Encounter for supervision of other normal pregnancy, second trimester (principal) ==

== ENCOUNTER → 2023-09-05 | Outpatient (CLI) | payer OTHER | LOC: M WHC 07:28 | PROVIDERS: ATTEND Obstetrics & Gynecology | DX: Z36.2 Encounter for other antenatal screening follow-up (principal) ==

== ENCOUNTER → 2023-09-13 | Outpatient (CLI) | payer OTHER | LOC: M WHC 12:55 | PROVIDERS: ATTEND Obstetrics & Gynecology | DX: O36.5990 Maternal care for other known or suspected poor fetal growth, unspecified trimester, not applicable or unspecified (principal) ==

== ENCOUNTER → 2023-09-22 | Outpatient (CLI) | payer OTHER | LOC: M WHC 12:55 | PROVIDERS: ATTEND Obstetrics & Gynecology | DX: O36.5930 Maternal care for other known or suspected poor fetal growth, third trimester, not applicable or unspecified (principal); Z3A.31 31 weeks gestation of pregnancy ==

== ENCOUNTER → 2023-09-29 | Outpatient (CLI) | payer OTHER | LOC: M WHC 13:00 | PROVIDERS: ATTEND Obstetrics & Gynecology | DX: O36.5930 Maternal care for other known or suspected poor fetal growth, third trimester, not applicable or unspecified (principal); Z3A.34 34 weeks gestation of pregnancy ==

== ENCOUNTER → 2023-10-03 | Outpatient (REF) | payer OTHER | LOC: M SFHCWAGY 13:05 | PROVIDERS: ATTEND Specialist | DX: O36.5990 Maternal care for other known or suspected poor fetal growth, unspecified trimester, not applicable or unspecified (principal) ==

== ENCOUNTER → 2023-10-13 | Outpatient (CLI) | payer OTHER | LOC: M WHC 13:06 | PROVIDERS: ATTEND Obstetrics & Gynecology | DX: O36.5990 Maternal care for other known or suspected poor fetal growth, unspecified trimester, not applicable or unspecified (principal); Z3A.36 36 weeks gestation of pregnancy ==

== ENCOUNTER 2023-10-18 11:22 | Inpatient (IN) | payer OTHER ==
[~2023-10-18] VITALS: Ht 160 cm; Wt 113.3 kg
[2023-10-18] VITALS (12 sets, daily range): BP systolic 129–185; BP diastolic 70–101
[2023-10-18] MEDS ORDERED: CARBOPROST TROMETHAMINE 250 MCG/ML AMP IM PRN (11:30)
[2023-10-18] MEDS ORDERED: LIDOCAINE 1% MDV 20ML VIAL INFIL PRN (11:30)
[2023-10-18] MEDS ORDERED: TRANEXAMIC ACID INJection 1,000 MG in NS 100 ML IV PRN (11:30)
[2023-10-18] MEDS ORDERED: OXYTOCIN INJ 10UNITS/ML 1ML VIAL IM PRN (11:30)
[2023-10-18] MEDS ORDERED: OXYTOCIN DRIP 30 UNITS in IV 1 EA IV PRN ×4 (11:30)
[2023-10-18] MEDS ORDERED: METHYLERGONOVINE MALEATE 0.2MG/ML 1ML VIAL IM PRN (11:30)
[2023-10-18] MEDS: miSOPROStol 50MCG 1/2 TABLET PO SCH ×3 (12:11→20:21)
[2023-10-18 12:22] LABS: HEMATOCRIT 33.8 % (36.0-47.0); HEMOGLOBIN 11.4 g/dl (12.0-15.5); MEAN CORPUSCULAR HEMOGLOBIN 29.1 pg (27.0-33.0); MEAN CORPUSCULAR HGB CONC 33.7 g/dl (32.0-36.5); MEAN CORPUSCULAR VOLUME 86.2 fl (80.0-96.0); PLATELET COUNT, AUTOMATED 307 10^3/uL (150-450); RED BLOOD COUNT 3.92 10^6/uL (4.00-5.40); WHITE BLOOD COUNT 7.9 10^3/uL (4.0-10.0)
[2023-10-18] MEDS ORDERED: CALCIUM CARBONATE 500 MG CHEW U/D PO PRN (17:15)
[2023-10-18] MEDS ORDERED: BUTORPHANOL 2 MG/ML 1ML VIAL IV ONE (20:45)
[2023-10-18] MEDS ORDERED: PROMETHAZINE 25MG/ML 1ML VIAL IV ONE (20:45)
[2023-10-18] MEDS ORDERED: LR 1,000 ML IV SCH (21:40)
[2023-10-18] MEDS ORDERED: OXYTOCIN DRIP 30 UNITS in IV 1 EA IV SCH (21:40)
[2023-10-18] MEDS ORDERED: LR 1,000 ML IV ONE (23:05)
[2023-10-18] MEDS ORDERED: diphenhydrAMINE 50MG/ML VIAL IV PRN (23:35)
[2023-10-18] MEDS ORDERED: EPIDURAL/PCA KEYS XX PRN (23:35)
[2023-10-18] MEDS ORDERED: LR 500 ML IV PRN (23:35)
[2023-10-18] MEDS ORDERED: NALOXONE INJ 0.4MG/1ML VIAL IV PRN (23:35)
[2023-10-18] MEDS ORDERED: ePHEDrine SULFATE 25 MG/5 ML(5MG/ML) SYRINGE IVP PRN (23:35)
[2023-10-18] MEDS ORDERED: ONDANSETRON 4MG 2ML VIAL IV PRN (23:35)
[2023-10-18] MEDS ORDERED: FENTANYL/ROPIVACAINE/NACL BAG 100 ML EPIDURAL SCH (23:35)
[2023-10-18] MEDS ORDERED: REFLB XX ONE (23:49)
[2023-10-19] VITALS (11 sets, daily range): BP systolic 132–185; BP diastolic 68–88; O2SAT 95–99
[2023-10-19] MEDS ORDERED: RHOGAM 300MCG (1500IU) INJ IM SCH (00:50)
[2023-10-19] MEDS ORDERED: ACETAMINOPHEN TAB 650MG DOSE (2X325MG) PO PRN (00:50)
[2023-10-19] MEDS ORDERED: ACETAMINOPHEN 500 MG TAB PO PRN (00:50)
[2023-10-19] MEDS ORDERED: IBUPROFEN 600MG TAB PO PRN (00:50)
[2023-10-19] MEDS ORDERED: IBUPROFEN 800 MG TAB PO PRN (00:50)
[2023-10-19] MEDS ORDERED: DIBUCAINE 1% OINTMENT 30GM TOP PRN (00:50)
[2023-10-19] MEDS ORDERED: DOCUSATE SODIUM 100MG CAPSULE PO PRN (00:50)
[2023-10-19] MEDS: PRENATAL VITAMINS CHEWABLE TABLET PO SCH (09:00)
[2023-10-20 05:58] VITALS: BP 136/81; O2SAT 96
[2023-10-20] MEDS: PRENATAL VITAMINS CHEWABLE TABLET PO SCH (09:16)
[2023-10-20] MEDS ORDERED: BOOSTRIX VACCINE (TETANUS/DIPHTH/ACEL. PERTUSSIS) 0.5ML SYR IM.IMMUN ONE (12:00)
[2023-10-21] MEDS ORDERED: MEASLES,MUMPS,RUBELLA VACCINE INJ (MMR-II) SC.IMMUN ONE (09:00)
== END 2023-10-20 13:00 | disposition home or self-care (01) | DRG 560 ==
LOC: M LDI 11:22 → M OBS 10-19 02:40
PROVIDERS: ADMIT Advanced Practice Midwife; ATTEND Advanced Practice Midwife
PROC: 3E0P7GC Introduction of Other Therapeutic Substance into Female Reproductive, Via Natural or Artificial Opening (ICD-10-PCS; 2023-10-18)
PROC: 10E0XZZ Delivery of Products of Conception, External Approach (ICD-10-PCS; principal; 2023-10-19)
PROC: 0HQ9XZZ Repair Perineum Skin, External Approach (ICD-10-PCS; 2023-10-19)
PROC: 10907ZC Drainage of Amniotic Fluid, Therapeutic from Products of Conception, Via Natural or Artificial Opening (ICD-10-PCS; 2023-10-19)
DX: O36.5930 Maternal care for other known or suspected poor fetal growth, third trimester, not applicable or unspecified (principal); O70.0 First degree perineal laceration during delivery; Z3A.37 37 weeks gestation of pregnancy; Z91.030 Bee allergy status; Z37.0 Single live birth

== ENCOUNTER → 2024-03-18 | Outpatient (REF) | payer OTHER ==
[~2024-03-18] MED LIST changes: +ONDA-282 PO; -ONDA4TAB6 PO
== END ==
LOC: M SFHCWAGY 09:57
PROVIDERS: ATTEND Advanced Practice Midwife
DX: Z12.4 Encounter for screening for malignant neoplasm of cervix (principal)

== ENCOUNTER → 2024-09-05 | Outpatient (CLI) | payer OTHER ==
[2024-09-05 13:07] LABS: HEMATOCRIT 37.5 % (36.0-47.0); HEMOGLOBIN 12.7 g/dl (12.0-15.5); MEAN CORPUSCULAR HEMOGLOBIN 29.7 pg (27.0-33.0); MEAN CORPUSCULAR HGB CONC 33.9 g/dl (32.0-36.5); MEAN CORPUSCULAR VOLUME 87.6 fl (80.0-96.0); PLATELET COUNT, AUTOMATED 293 10^3/uL (150-450); RED BLOOD COUNT 4.28 10^6/uL (4.00-5.40); WHITE BLOOD COUNT 8.9 10^3/uL (4.0-10.0)
[2024-09-05 14:13] LABS: HIV 1&2 SCREEN NEGATIVE (NEGATIVE)
[2024-09-05 14:21] LABS: HEPATITIS C VIRUS ABY INDEX < 0.02 INDEX (<0.8)
[2024-09-05 14:37] LABS: GC DNA AMPLIFICATION NEGATIVE (NEGATIVE)
== END ==
LOC: M PLALAB 09:58
PROVIDERS: ATTEND Nurse Practitioner Family
DX: Z34.80 Encounter for supervision of other normal pregnancy, unspecified trimester (principal)

== ENCOUNTER → 2024-10-03 | Outpatient (CLI) | payer OTHER | LOC: M PLALAB 10:43 | PROVIDERS: ATTEND Nurse Practitioner Family | DX: Z34.82 Encounter for supervision of other normal pregnancy, second trimester (principal) ==

== ENCOUNTER → 2024-10-25 | Outpatient (CLI) | payer OTHER | LOC: M WHC 12:53 | PROVIDERS: ATTEND Nurse Practitioner Family | DX: Z34.80 Encounter for supervision of other normal pregnancy, unspecified trimester (principal) ==

== ENCOUNTER → 2024-12-06 | Outpatient (CLI) | payer OTHER | LOC: M RAD 12:45 | PROVIDERS: ATTEND Obstetrics & Gynecology | DX: Z34.92 Encounter for supervision of normal pregnancy, unspecified, second trimester (principal) ==

== ENCOUNTER → 2024-12-11 | Outpatient (REF) | payer OTHER ==
[2024-12-11 13:40] LABS: GC DNA AMPLIFICATION NEGATIVE (NEGATIVE)
[2024-12-13 14:15] LABS: Trichomonas vaginalis (AMP) NOT DETECTED (NEGATIVE)
== END ==
LOC: M LAB REF 10:26
PROVIDERS: ATTEND Obstetrics & Gynecology
DX: Z34.92 Encounter for supervision of normal pregnancy, unspecified, second trimester (principal)

== ENCOUNTER → 2024-12-25 | Outpatient (CLI) | payer OTHER ==
[2024-12-25 13:49] LABS: HEMATOCRIT 34.4 % (36.0-47.0); HEMOGLOBIN 11.2 g/dl (12.0-15.5); MEAN CORPUSCULAR HGB CONC 32.6 g/dl (32.0-36.5); MEAN CORPUSCULAR VOLUME 89.1 fl (80.0-96.0); PLATELET COUNT, AUTOMATED 278 10^3/uL (150-450); RED BLOOD COUNT 3.86 10^6/uL (4.00-5.40); WHITE BLOOD COUNT 8.4 10^3/uL (4.0-10.0)
[2024-12-25 14:11] LABS: GLUCOSE CHALLENGE TEST 1 HOUR 97 MG/DL (LESS THAN 140)
[2024-12-25 14:39] LABS: HIV 1&2 SCREEN NEGATIVE (NEGATIVE)
[2024-12-25 14:47] LABS: HEPATITIS C VIRUS ABY INDEX 0.03 INDEX (<0.8)
== END ==
LOC: M PLALAB 09:22
PROVIDERS: ATTEND Obstetrics & Gynecology
DX: Z34.92 Encounter for supervision of normal pregnancy, unspecified, second trimester (principal)

== ENCOUNTER 2025-01-31 13:01 | Emergency (ER) | payer OTHER ==
[~2025-01-31] VITALS: Ht 160 cm; Wt 104.0 kg
[2025-01-31 13:05] VITALS: BP 143/93; TEMP 97.3; O2SAT 98
== END 2025-01-31 13:15 | disposition admitted as inpatient to this hospital (09) ==
LOC: M ED 13:01
DX: Z53.21 Procedure and treatment not carried out due to patient leaving prior to being seen by health care provider (principal)

== ENCOUNTER 2025-01-31 13:18 | Outpatient (CLI) | payer OTHER ==
[~2025-01-31] VITALS: Ht 160 cm; Wt 104.5 kg
[2025-01-31 13:39] VITALS: BP 132/71
[2025-01-31] MEDS: ONDANSETRON 4MG 2ML VIAL IV ONE (14:42)
[2025-01-31] MEDS: LR 1,000 ML IV ONE (14:42)
[2025-01-31 15:51] VITALS: BP 114/55
[2025-01-31] MEDS: METOCLOPRAMIDE INJ 10MG/2ML VIAL IV ONE (16:08)
[2025-01-31] MEDS: LR 1,000 ML IV SCH (16:40)
[2025-01-31 17:54] VITALS: BP 148/69
[2025-01-31 18:01] VITALS: BP 135/62
== END 2025-01-31 18:02 | disposition home or self-care (01) ==
LOC: M LDO 13:18
PROVIDERS: ATTEND Advanced Practice Midwife
DX: O21.8 Other vomiting complicating pregnancy (principal); O99.323 Drug use complicating pregnancy, third trimester; O99.213 Obesity complicating pregnancy, third trimester; F12.10 Cannabis abuse, uncomplicated; E66.9 Obesity, unspecified; Z3A.34 34 weeks gestation of pregnancy; Z91.030 Bee allergy status
CPT/HCPCS: 59025; 96360; 96361; 96374; 96376; G0463; J2405; J2765

== ENCOUNTER → 2025-02-04 | Outpatient (REF) | payer OTHER | LOC: M SFHCWAGY 13:13 | PROVIDERS: ATTEND Advanced Practice Midwife | DX: Z34.83 Encounter for supervision of other normal pregnancy, third trimester (principal) ==